=== PATIENT | male | born 1930 | race Caucasian/White ===

== ENCOUNTER → 2016-12-03 | Outpatient (CLI) | payer MEDICARE, OTHER ==
[~2016-12-03] MED LIST: ALLO100T PO; ALPH200C3 PO; ASPI81TA82 PO; ATAC16TA PO; ATOR10 PO; CALCTAB75 PO; CO Q100C9 PO; FERR65TA2 PO; FISHCAP4 PO; FURO1TAB93 PO; MAGN400T PO; SAW160TA PO; TAB-TAB PO; TAMS0.4C67 PO; VITA200017 PO; VITATAB11
[2016-12-03 15:40] LABS: HEMATOCRIT 25.2 % (39.0-51.0); MEAN CELL VOLUME 92.7 FL (80.0-100.0); MEAN CORPUSCULAR HGB CONC 33.4 % (32.0-36.0); PLATELET COUNT 249 TH/MM3 (150-450); RED BLOOD COUNT 2.71 MIL/MM3 (4.50-5.90); RED CELL DISTRIBUTION WIDTH 16.6 % (11.6-17.2); REVIEW FLAG FINAL; WHITE BLOOD COUNT 7.8 TH/MM3 (4.0-11.0)
[2016-12-03 15:47] LABS: ANION GAP 14 MEQ/L (5-15); AST (GOT) 19 U/L (15-37); BICARBONATE 23.8 MEQ/L (21.0-32.0); BLOOD UREA NITROGEN 67 MG/DL (7-18); CHLORIDE 94 MEQ/L (98-107); GLOMERULAR FILTRATION RATE 4 ML/MIN (>89); GLUCOSE,FASTING 91 MG/DL (74-99); POTASSIUM 4.5 MEQ/L (3.5-5.1); SODIUM (NA) 132 MEQ/L (136-145)
[2016-12-03 15:58] LABS: ALKALINE PHOSPHATASE 184 U/L (45-117); ALT (GPT) 9 U/L (12-78); HDL CHOLESTEROL 48.5 MG/DL (40.0-60.0); LDL CHOLESTEROL 37 MG/DL (0-99); TOTAL BILIRUBIN ADULT 0.5 MG/DL (0.2-1.0); URIC ACID 5.2 MG/DL (2.6-7.2)
== END ==
LOC: PLAB 12:13
PROVIDERS: ATTEND Family Medicine
DX: M15.8 Other polyosteoarthritis (principal); E78.5 Hyperlipidemia, unspecified; I10 Essential (primary) hypertension; N18.5 Chronic kidney disease, stage 5; M10.9 Gout, unspecified; G62.9 Polyneuropathy, unspecified
CPT/HCPCS: 36415; 80053; 80061; 84443; 84550; 85027

== ENCOUNTER → 2017-01-08 | Outpatient (CLI) | payer MEDICARE, OTHER ==
[2017-01-08 16:02] LABS: RHEUMATOID FACTOR TRIGGER LESS THAN 10.0 IU/ML (0.0-14.9)
== END ==
LOC: PLAB 13:07
PROVIDERS: ATTEND Family Medicine
DX: M25.50 Pain in unspecified joint (principal)
CPT/HCPCS: 36415; 85652; 86038; 86430

== ENCOUNTER → 2017-04-10 | Outpatient (CLI) | payer MEDICARE, OTHER ==
[2017-04-10 13:35] LABS: HEMATOCRIT 36.3 % (39.0-51.0); MEAN CELL VOLUME 90.8 FL (80.0-100.0); MEAN CORPUSCULAR HEMOGLOBIN 30.7 PG (27.0-34.0); MEAN CORPUSCULAR HGB CONC 33.9 % (32.0-36.0); PLATELET COUNT 201 TH/MM3 (150-450); RED CELL DISTRIBUTION WIDTH 17.2 % (11.6-17.2); REVIEW FLAG FINAL; WHITE BLOOD COUNT 5.8 TH/MM3 (4.0-11.0)
[2017-04-10 14:12] LABS: ANION GAP 14 MEQ/L (5-15); AST (GOT) 23 U/L (15-37); BICARBONATE 24.6 MEQ/L (21.0-32.0); BLOOD UREA NITROGEN 58 MG/DL (7-18); CHLORIDE 89 MEQ/L (98-107); GLOMERULAR FILTRATION RATE 4 ML/MIN (>89); GLUCOSE,FASTING 85 MG/DL (74-99); POTASSIUM 3.7 MEQ/L (3.5-5.1); SODIUM (NA) 128 MEQ/L (136-145)
[2017-04-10 14:23] LABS: ALKALINE PHOSPHATASE 153 U/L (45-117); ALT (GPT) LESS THAN 6 U/L (12-78); LDL CHOLESTEROL 40 MG/DL (0-99); TOTAL BILIRUBIN ADULT 0.4 MG/DL (0.2-1.0); URIC ACID 6.3 MG/DL (2.6-7.2)
== END ==
LOC: PLAB 11:13
PROVIDERS: ATTEND Family Medicine
DX: M15.8 Other polyosteoarthritis (principal); E78.5 Hyperlipidemia, unspecified; I12.0 Hypertensive chronic kidney disease with stage 5 chronic kidney disease or end stage renal disease; N18.5 Chronic kidney disease, stage 5; M10.9 Gout, unspecified; G62.9 Polyneuropathy, unspecified; R21 Rash and other nonspecific skin eruption
CPT/HCPCS: 36415; 80053; 80061; 84443; 84550; 85027

== ENCOUNTER → 2017-08-22 | Outpatient (CLI) | payer MEDICARE, OTHER ==
[2017-08-22 16:31] LABS: HEMATOCRIT 35.5 % (39.0-51.0); MEAN CELL VOLUME 97.8 FL (80.0-100.0); MEAN CORPUSCULAR HEMOGLOBIN 31.4 PG (27.0-34.0); MEAN CORPUSCULAR HGB CONC 32.1 % (32.0-36.0); PLATELET COUNT 251 TH/MM3 (150-450); RED BLOOD COUNT 3.64 MIL/MM3 (4.50-5.90); RED CELL DISTRIBUTION WIDTH 17.9 % (11.6-17.2); REVIEW FLAG FINAL; WHITE BLOOD COUNT 6.8 TH/MM3 (4.0-11.0)
[2017-08-22 16:38] LABS: ANION GAP 13 MEQ/L (5-15); AST (GOT) 19 U/L (15-37); BICARBONATE 25.4 MEQ/L (21.0-32.0); BLOOD UREA NITROGEN 73 MG/DL (7-18); CHLORIDE 94 MEQ/L (98-107); GLOMERULAR FILTRATION RATE 3 ML/MIN (>89); GLUCOSE,FASTING 102 MG/DL (74-99); SODIUM (NA) 132 MEQ/L (136-145)
[2017-08-22 16:43] LABS: ALKALINE PHOSPHATASE 161 U/L (45-117); ALT (GPT) 9 U/L (12-78); LDL CHOLESTEROL 34 MG/DL (0-99); TOTAL BILIRUBIN ADULT 0.4 MG/DL (0.2-1.0)
== END ==
LOC: PLAB 11:43
PROVIDERS: ATTEND Family Medicine
DX: M25.50 Pain in unspecified joint (principal); N18.5 Chronic kidney disease, stage 5; R09.89 Other specified symptoms and signs involving the circulatory and respiratory systems; H34.9 Unspecified retinal vascular occlusion
CPT/HCPCS: 36415; 80053; 80061; 85027

== ENCOUNTER → 2017-12-12 | Outpatient (CLI) | payer MEDICARE, OTHER ==
[2017-12-12 20:36] LABS: HEMATOCRIT 38.6 % (39.0-51.0); HEMOGLOBIN 12.5 GM/DL (13.0-17.0); MEAN CELL VOLUME 96.6 FL (80.0-100.0); MEAN CORPUSCULAR HEMOGLOBIN 31.3 PG (27.0-34.0); MEAN CORPUSCULAR HGB CONC 32.5 % (32.0-36.0); MEAN PLATELET VOLUME 6.9 FL (7.0-11.0); PLATELET COUNT 261 TH/MM3 (150-450); RED CELL DISTRIBUTION WIDTH 19.1 % (11.6-17.2); WHITE BLOOD COUNT 8.7 TH/MM3 (4.0-11.0)
[2017-12-12 20:53] LABS: ALBUMIN 2.7 GM/DL (3.4-5.0); ALT (GPT) LESS THAN 6 U/L (12-78); AST (GOT) 17 U/L (15-37); BICARBONATE 22.7 MEQ/L (21.0-32.0); BLOOD UREA NITROGEN 58 MG/DL (7-18); CALCIUM 7.9 MG/DL (8.5-10.1); CHLORIDE 99 MEQ/L (98-107); GLOMERULAR FILTRATION RATE 4 ML/MIN (>89); GLUCOSE,FASTING 99 MG/DL (74-99); SODIUM (NA) 136 MEQ/L (136-145)
[2017-12-12 20:54] LABS: CHOLESTEROL 108 MG/DL (120-200)
[2017-12-12 21:04] LABS: ALKALINE PHOSPHATASE 160 U/L (45-117); CHOLESTEROL/ HDL RATIO 2.08 RATIO; HDL CHOLESTEROL 51.8 MG/DL (40.0-60.0); LDL CHOLESTEROL 37 MG/DL (0-99); TOTAL BILIRUBIN ADULT 0.4 MG/DL (0.2-1.0); TOTAL PROTEIN 6.2 GM/DL (6.4-8.2); TRIGLYCERIDES 94 MG/DL (42-150)
[2017-12-12 21:47] LABS: CREATININE 12.82 MG/DL (0.60-1.30)
== END ==
LOC: PLAB 13:02
PROVIDERS: ATTEND Family Medicine
DX: M25.50 Pain in unspecified joint (principal); N18.5 Chronic kidney disease, stage 5; R09.89 Other specified symptoms and signs involving the circulatory and respiratory systems; H34.9 Unspecified retinal vascular occlusion
CPT/HCPCS: 36415; 80053; 80061; 84443; 85027

== ENCOUNTER → 2017-12-23 | Outpatient (CLI) | payer MEDICARE, OTHER ==
[2017-12-23 14:54] LABS: C-REACTIVE PROTEIN 1.32 MG/DL (0.00-0.30)
[2017-12-23 14:56] LABS: COMPLEMENT C3 103 MG/DL (90-180); COMPLEMENT C4 36 MG/DL (10-40)
[2017-12-25 15:14] LABS: DNA DOUBLE STRANDED AB <12.3 IU/mL
== END ==
LOC: PLAB 11:45
PROVIDERS: ATTEND Family Medicine
DX: M25.50 Pain in unspecified joint (principal)
CPT/HCPCS: 36415; 83516; 84550; 85652; 86038; 86140; 86160; 86225; 86235